=== PATIENT | female | born 1950 | race Caucasian/White ===

== ENCOUNTER 2016-09-12 19:23 | Inpatient (IN) | payer OTHER ==
[~2016-09-12] VITALS: Ht 157.5 cm; Wt 72.6 kg
[2016-09-12] MEDS ORDERED: LYRICA300 MG PO (21:01)
[2016-09-12 22:02] LABS: CALCIUM 8.8 mg/dL (8.5-10.1); CARBON DIOXIDE 22.8 mmol/L (21-32); CREATININE SERUM 2.8 mg/dL (0.6-1.0); POTASSIUM SERUM 3.4 mmol/L (3.5-5.1)
[2016-09-12 22:07] LABS: ALBUMIN 1.7 g/dL (3.4-5.0); BILIRUBIN TOTAL 0.4 mg/dL (0.20-1.00); TOTAL PROTEIN, SERUM 6.4 g/dL (6.4-8.2)
[2016-09-12 22:09] LABS: CK-MB 0.7 ng/mL (0-3.6)
[2016-09-12 22:24] LABS: PLATELET COUNT 128 x10^3mcL (130-400); RED CELL DISTRIBUTION WIDTH 16.5 % (11.5-14.5)
[2016-09-12 22:54] LABS: BAND NEUTROPHIL 5 % (0-10); MONOCYTE 5 % (0-7); SEGMENTED NEUTROPHILS 80 % (37-75)
[2016-09-12 22:55] LABS: PLATELET MORPHOLOGY PLATELETS DECREASED; rbc morphology (normal/abnorm) ABNORMAL (NORMAL)
[2016-09-12 23:39] VITALS: BP 113/63
[2016-09-12 23:47] VITALS: Ht 157.5 cm; Wt 72.6 kg
[2016-09-13] VITALS (7 sets, daily range): BP systolic 101–119; BP diastolic 50–68
[2016-09-13 00:11] LABS: CHOLESTEROL/HDL RATIO 9.3
[2016-09-13 00:17] LABS: FREE T4 0.81 ng/dL (0.76-1.46); FREE THYROXINE INDEX 1.5 ug/dL (1.4-4.5); T4(THYROXINE) 4.4 ug/dL (4.7-13.3)
[2016-09-13 01:22] LABS: T3 TOTAL 0.38 ng/mL
[2016-09-13 02:11] LABS: UA SPECIFIC GRAVITY 1.015 (1.005-1.035); microscopic required? YES; urine erythrocyte TRACE (NEGATIVE)
[2016-09-13 02:25] LABS: AMPHETAMINE QUAL UR NONE DETECTED (NEG <=1000)
[2016-09-13 06:26] LABS: CALCIUM 8.4 mg/dL (8.5-10.1); CARBON DIOXIDE 20.9 mmol/L (21-32); CREATININE SERUM 2.6 mg/dL (0.6-1.0); MAGNESIUM 2.6 mg/dL (1.8-2.4); PHOSPHOROUS 4.8 mg/dL (2.5-4.9); POTASSIUM SERUM 3.8 mmol/L (3.5-5.1)
[2016-09-13 07:03] LABS: PLATELET COUNT 113 x10^3mcL (130-400); RED CELL DISTRIBUTION WIDTH 16.6 % (11.5-14.5)
[2016-09-13 11:38] LABS: BAND NEUTROPHIL 15 % (0-10); BASOPHIL 0 % (0-2); MONOCYTE 2 % (0-7); SEGMENTED NEUTROPHILS 82 % (37-75); burr cell (echinocyte) 1+; rbc morphology (normal/abnorm) ABNORMAL (NORMAL)
[2016-09-14 05:35] VITALS: BP 123/51
[2016-09-14 07:00] LABS: PLATELET COUNT 125 x10^3mcL (130-400); RED CELL DISTRIBUTION WIDTH 16.7 % (11.5-14.5)
[2016-09-14 07:33] LABS: CALCIUM 8.3 mg/dL (8.5-10.1); CARBON DIOXIDE 19.2 mmol/L (21-32); CREATININE SERUM 2.6 mg/dL (0.6-1.0); MAGNESIUM 2.6 mg/dL (1.8-2.4); POTASSIUM SERUM 3.9 mmol/L (3.5-5.1)
[2016-09-14 08:46] LABS: BASOPHIL 0 % (0-2); METAMYELOCTE 1 % (0-2); MONOCYTE 4 % (0-7); MYELOCYTE 2 % (0-2)
[2016-09-14 08:47] LABS: BAND NEUTROPHIL 13 % (0-10); SEGMENTED NEUTROPHILS 78 % (37-75)
[2016-09-14 08:49] LABS: burr cell (echinocyte) 1+; rbc morphology (normal/abnorm) ABNORMAL (NORMAL)
[2016-09-14 10:46] VITALS: BP 145/68
[2016-09-14 18:26] VITALS: BP 139/79
== END 2016-09-14 19:00 | disposition left against medical advice (07) | DRG 177 ==
LOC: ED 19:23 → DU 22:21 → MU 09-13 19:17
PROVIDERS: Emergency Medicine; ADMIT Family Medicine
DX: J69.0 Pneumonitis due to inhalation of food and vomit (principal); J96.01 Acute respiratory failure with hypoxia; E43 Unspecified severe protein-calorie malnutrition; N17.0 Acute kidney failure with tubular necrosis; I50.43 Acute on chronic combined systolic (congestive) and diastolic (congestive) heart failure; J44.1 Chronic obstructive pulmonary disease with (acute) exacerbation; R18.8 Other ascites; I71.4 Abdominal aortic aneurysm, without rupture; R73.03 Prediabetes; E87.6 Hypokalemia; G62.9 Polyneuropathy, unspecified; E78.1 Pure hyperglyceridemia; F17.210 Nicotine dependence, cigarettes, uncomplicated; Z68.31 Body mass index [BMI] 31.0-31.9, adult; Z85.3 Personal history of malignant neoplasm of breast
CPT/HCPCS: 36600; 80307; 83880; 84439; 94150; J0132; J0456; J0696; J1956; J2543; J2930; J3490; J7030; J7050; J7613; J7620; J7626; J7644; Q0092

== ENCOUNTER 2017-05-07 14:55 | Emergency (ER) | payer OTHER ==
[~2017-05-07] VITALS: Ht 157.5 cm; Wt 75.7 kg
[~2017-05-07 14:55] MED LIST: LYRICA300 MG PO
[2017-05-07 15:06] VITALS: BP 141/85; Ht 157.5 cm; Wt 75.7 kg
== END 2017-05-07 15:26 | disposition left against medical advice (07) ==
LOC: ED 14:55
DX: Z76.0 Encounter for issue of repeat prescription (principal); I10 Essential (primary) hypertension

== ENCOUNTER 2019-03-12 14:20 | Emergency (ER) | payer OTHER ==
[~2019-03-12] VITALS: Ht 165.1 cm; Wt 55.8 kg
[2019-03-12 14:27] VITALS: Ht 165.1 cm; Wt 55.8 kg
[2019-03-12 17:03] VITALS: BP 115/75
== END 2019-03-12 17:03 | disposition home or self-care (01) ==
LOC: ED 14:20
DX: G89.29 Other chronic pain (principal); M79.672 Pain in left foot; M79.671 Pain in right foot; I10 Essential (primary) hypertension; Z76.0 Encounter for issue of repeat prescription

== ENCOUNTER 2019-03-21 15:45 | Emergency (ER) | payer OTHER ==
[~2019-03-21] VITALS: Ht 165.1 cm; Wt 59.0 kg
[2019-03-21 16:18] VITALS: Ht 165.1 cm; Wt 59.0 kg
[2019-03-21 17:19] VITALS: BP 186/95
== END 2019-03-21 17:19 | disposition home or self-care (01) ==
LOC: ED 15:45
DX: G62.9 Polyneuropathy, unspecified (principal); I10 Essential (primary) hypertension; F17.210 Nicotine dependence, cigarettes, uncomplicated; Z76.0 Encounter for issue of repeat prescription; Z88.0 Allergy status to penicillin
CPT/HCPCS: 99406

== ENCOUNTER 2019-04-17 22:25 | Observation (INO) | payer OTHER ==
[~2019-04-17] VITALS: Ht 165.1 cm; Wt 64.9 kg
[2019-04-17 22:32] VITALS: Ht 165.1 cm; Wt 64.9 kg
--- NOTE | 2019-04-17 22:33 | NUR ---
PT BIB [facility] FOR C/O OF CHEST PAIN THAT STARTED AT APPROX 2100 THIS EVENING. PER PT IT WAS A SUDDEN ON SET WHILE SHE WAS WATCHING TV. UPON ARRIVAL [facility]IC REPORT PT WAS RATING HER PAIN A 10/10. MEDIC REPORTS GIVING PT 324MG OF ASPIRIN AND 0.4 OF NITRO AND PT PAIN DECREASED TO A 5/10. MEDICS REPORT 2 IV ATTEMPTS WITHOUT SUCCESS. UPON ARRIVAL OF PT, PT A/O X4. PT RATES HER PAIN A 2/10 NO RADIATING AND SHARP. PT REPORTS A HX OF PNEUMONIA AND A COUGH WITH GREEN PHLEGM SHE HAS HAD FOR APPROX 2 WEEKS. PT STATES THAT SHE WAS GIVEN AN UNKNOWN ANITBIOTIC THAT SHE COMPLETE WITHOUT RELIEF OF HER COUGH. RHONCHI HEARD WITH ASCULTATION OF THE LUNGS. PT RESP ARE E/U. NO ACUTE DISTRESS NOTED. PT PLACED ON FULL APPLIED PSYCHOLOGY CHAIR.
--- NOTE | 2019-04-17 23:04 | NUR ---
2 ATTEMPTS AT IV WITHOUT SUCCESS BY MYSELF.
[2019-04-17 23:23] LABS: BASOPHIL % 0.8 % (0-2); PLATELET COUNT 229 x10^3mcL (130-400)
[2019-04-17 23:24] LABS: RED CELL DISTRIBUTION WIDTH 17.7 % (11.5-14.5)
[2019-04-17 23:33] LABS: CALCIUM 7.7 mg/dL (8.5-10.1); CARBON DIOXIDE 22.9 mmol/L (21-32); CREATININE SERUM 2.2 mg/dL (0.6-1.0); POTASSIUM SERUM 3.7 mmol/L (3.5-5.1)
[2019-04-17 23:37] LABS: BILIRUBIN TOTAL 0.3 mg/dL (0.20-1.00); TOTAL PROTEIN, SERUM 6.7 g/dL (6.4-8.2)
[2019-04-17 23:41] LABS: ALBUMIN 2.5 g/dL (3.4-5.0)
--- NOTE | 2019-04-18 00:03 | NUR ---
PT REQUESTED TO USE RESTROOM, EXPLAINED TO PT THAT BEDSIDE COMMODE WILL BE PROVIDED. PT STATED SHE FEELS VERY DIZZY AND REQUESTED BEDPAN.
[2019-04-18] MEDS ORDERED: NIFEDIPINE ER60 M1 PO (00:38)
--- NOTE | 2019-04-18 01:53 | NUR ---
PT GIVEN 10MG OF LABETALOL. PT BP NOTED AT 141/74 AND A HR OF 56 OTHER 10MG OF LABETALOL HELD AT THIS TIME.
--- NOTE | 2019-04-18 02:07 | NUR ---
ADMITTED PT FROM ER WITH C/O CHESTPAIN THAT STARTED YESTERDAY @ 2100.A/O X4.DENIES HEADACHE OR DIZZINESS.DENIES CHESTPAIN AT THIS TIME.LATEST BP CHECKED @ 163/103 MMHG,HR 71.PLACED ON TELE # 22 WITH READING NSR.EDEMA TO BLE NOTED.ADMISSION CARE RENDERED.SNACKS OFFERED AT THIS TIME.REQUESTED FOR FLU VACCINE ON THIS ADMISSION.WILL CONTINUE TO MONITOR.
[2019-04-18 02:27] VITALS: BP 163/103
--- NOTE | 2019-04-18 03:19 | NUR ---
ASSISTED TO BR AND AMBULATED WITH FWW.HEPARIN SQ AND FLU VACCINE GIVEN TO L ARM.WILL CONTINUE TO MONITOR.
[2019-04-18 06:07] VITALS: BP 148/83
--- NOTE | 2019-04-18 06:11 | NUR ---
LATEST BP THIS AM AFTER NIFEDIPINE @ 148/83 MMHG,HR 84.DENIES CHESTPAIN.WILL CONTINUE TO MONITOR.
[2019-04-18 07:00] LABS: BASOPHIL % 0.6 % (0-2); PLATELET COUNT 227 x10^3mcL (130-400)
[2019-04-18 07:03] LABS: BILIRUBIN TOTAL 0.19 mg/dL (0.20-1.00); CARBON DIOXIDE 22.4 mmol/L (21-32); CREATININE SERUM 2.2 mg/dL (0.6-1.0); MAGNESIUM 2.2 mg/dL (1.8-2.4); POTASSIUM SERUM 3.1 mmol/L (3.5-5.1); TOTAL PROTEIN, SERUM 6.5 g/dL (6.4-8.2)
[2019-04-18 07:05] LABS: ALBUMIN 2.4 g/dL (3.4-5.0)
[2019-04-18 07:07] LABS: RED CELL DISTRIBUTION WIDTH 17.7 % (11.5-14.5)
--- NOTE | 2019-04-18 07:10 | NUR ---
RECEIVED PT FROM GIANFRANCO RN. PT AA/OX4 LAYING IN BED. NO S/S OF ACUTE DISTRESS. DENIES SOB ON ROOM AIR. DENIES CHEST PAIN. NSR ON TELE 22, HR 87. IV WNL TO RFA, PATENT, SALINE LOCKED. NO JIMENEZ. NO DIZZINESS. NO N/V. CALM/COOPERATIVE. INSTRUCTED TO USE CALL LIGHT TO CALL FOR ASSISTANCE PRN. VERBALIZED UNDERSTANDING. WILL CONTINUE TO MONITOR. FALL PREC IN PLACE. WALKER AT BEDSIDE. PT ABLE TO REPOSITION INDEPENDENTLY.
--- NOTE | 2019-04-18 09:15 | NUR ---
PT REMOVED IV FROM RFA. PT STATES, "I DON'T NEED THAT ANYMORE, I'M GOING HOME TODAY." EXPLAINED PURPOSE OF IV TO PT. PT CONTINUES TO REFUSE IV/IV THERAPY. CATHETER IN TACT. NO BLEEDING NOTED TO SITE. PT AA/OX4 LAYING IN BED. VS STABLE. NO SOB ON ROOM AIR. BED IN LOW POSITION. CALL LIGHT WITHIN REACH. WILL CONT. TO MONITOR.
[2019-04-18 09:50] VITALS: BP 102/59
[2019-04-18 12:05] VITALS: BP 102/59
--- NOTE | 2019-04-18 12:38 | NUR ---
PT BEING DISCHARGED TO HOME. AWAKE, ALERT, ORIENTED X4. DENIES PAIN. NO CHEST PAIN. TELE REMOVED. NO SOB ON ROOM AIR. VS STABLE. PT REFUSES TO WAIT TO BE SEEN BY BUSINESS AFFAIRS MANAGER PRIOR, SEE CHART FOR REFUSAL FORM. PT STATES SHE HAS REFERRAL TO FOLLOW UP WITH BUSINESS AFFAIRS MANAGER OUTPATIENT AND REPORTS DR. ALDRICH AWARE. DISCHARGE EDUCATION PROVIDED TO PATIENT. INSTRUCTED TO FOLLOW UP WITH PCP AND BUSINESS AFFAIRS MANAGER. PT VERBALIZED UNDERSTANDING. NO IV. BELONGINGS WITH PATIENT. PRESCRIPTION PROVIDED TO PATIENT. TAKEN BY WHEELCHAIR TO LOBBY BY OSMIN KAM.
--- NOTE | 2019-04-19 08:21 | NUR ---
ECHOCARDIOGRAM NOT DONE-DISCHARGED
== END 2019-04-18 12:39 | disposition home or self-care (01) ==
LOC: ED 22:25 → DU 04-18 00:38
PROVIDERS: Emergency Medicine; ADMIT Internal Medicine Pulmonary Disease
DX: R07.89 Other chest pain (principal); I16.0 Hypertensive urgency; I12.9 Hypertensive chronic kidney disease with stage 1 through stage 4 chronic kidney disease, or unspecified chronic kidney disease; N18.3 Chronic kidney disease, stage 3 (moderate); R01.1 Cardiac murmur, unspecified; Z86.73 Personal history of transient ischemic attack (TIA), and cerebral infarction without residual deficits; Z23 Encounter for immunization
CPT/HCPCS: 90658; G0378; J0360; J1644; J2270; J3490; Q0092

== ENCOUNTER 2019-06-20 13:32 | Emergency (ER) | payer OTHER ==
[~2019-06-20] VITALS: Ht 165.1 cm; Wt 66.2 kg
[~2019-06-20 13:32] MED LIST changes: +NIFEDIPINE ER60 M1 PO
[2019-06-20 13:42] VITALS: BP 162/88; Ht 165.1 cm; Wt 66.2 kg
== END 2019-06-20 16:30 | disposition left against medical advice (07) ==
LOC: ED 13:32
DX: G62.9 Polyneuropathy, unspecified (principal); Z76.0 Encounter for issue of repeat prescription; I10 Essential (primary) hypertension; Z88.0 Allergy status to penicillin